=== PATIENT | female | born 1970 | race Caucasian/White ===

== ENCOUNTER 2018-02-03 20:38 | Emergency (ER) | payer OTHER ==
[~2018-02-03] VITALS: Ht 165.1 cm; Wt 77.1 kg
--- OUTSIDE RECORDS SUMMARY | 2018-02-03 20:45 | XMS REPORT | CCD ---
Author Author TERI BLACKWELL Unknown Address [address] [facility] [address] [place] [address] Care Team Providers Care Customer Relations Coordinator Name Role Phone MARCI LARA Attphys Allergies Allergy Code Allergy Type Reaction Status No Known Allergies 0 Drug allergy Active Active Medications Unknown or Not Available. Problems Unknown or Not Available. Procedures Procedure Code Procedure Type Date SHOULDER MINIMUM [id number] 08/10/2016 ELBOW [id number] 08/10/2016 Results Unknown or Not Available. Encounters Encounter Diagnosis Diagnosis Code Start Date Nondisplaced fracture of coronoid process of left ulna, initial encounter for closed fracture [id number] 08/10/2016 Function Status Unknown or Not Available. History of Immunizations Unknown or Not Available. Plan of Treatment Unknown or Not Available. Social History Smoking Status Code Start Date End Date Never smoker [id number] Vital Signs Unknown or Not Available. Function Status Unknown or Not Available. Goals Unknown or Not Available. ASSESSMENTS Unknown or Not Available. Health Concerns Section Unknown or Not Available.
--- OUTSIDE RECORDS SUMMARY | 2018-02-03 20:46 | XMS REPORT ---
Author Author Donna Guillen [facility] Address [address] [place], [place] [id number] Care Team Providers Care Casing Puller Name Role Phone Donna Guillen PCP Unavailable Allergies and Adverse Reactions Name Reaction Notes NO KNOWN DRUG ALLERGIES Plan of Treatment Not available. Medications Active Name Start Date Estimated Completion Date SIG Comments Paxil 20 mg oral tablet 07/09/2014 take 1 tablet (20 mg) by oral route once daily for 30 days Paxil 20 mg oral tablet 08/08/2014 take 1 tablet (20 mg) by oral route once daily for 30 days Paxil 20 mg oral tablet 09/03/2014 take 1 tablet (20 mg) by oral route once daily for 30 days Paxil 20 mg oral tablet 12/03/2014 take 1.5 tablets by oral route daily Name Start Date Expiration Date SIG Comments Keflex 750 mg oral capsule 02/09/2009 02/16/2009 take 1 capsule (750 mg) by oral route 2 times per day for 7 days meloxicam 15 mg oral tablet 09/26/2012 take 1 tablet (15 mg) by oral route once daily prednisone 20 mg oral tablet 09/06/2012 Taper dose 4X2, 3X2, 2X2, 1X2 then DC baclofen 20 mg oral tablet 02/21/2014 03/14/2014 take 1 tablet (20 mg) by oral route 3 times per day for 21 days Mobic 15 mg oral tablet 02/21/2014 03/14/2014 take 1 tablet (15 mg) by oral route once daily for 21 days amoxicillin 500 mg oral capsule 04/08/2014 04/15/2014 take 1 capsule (500 mg) by oral route 3 times per day for 7 days Paxil 20 mg oral tablet 04/14/2014 07/08/2014 take 1 tablet (20 mg) by oral route once daily for 30 days gentamicin 0.3 % ophthalmic drops 06/10/2014 06/15/2014 instill 1 drop into affected eye(s) by ophthalmic route every 4 hours for 5 days Discontinued Name Start Date Discontinued Date SIG Comments Medrol (Dusty) 4 mg oral tablets,dose pack 09/26/2012 10/10/2012 take as directed Zoloft 50 mg oral tablet 01/22/2013 03/18/2013 take 1 tablet (50 mg) by oral route once daily buspirone 10 mg oral tablet 03/18/2013 04/15/2013 take 1 tablet (10 mg) by oral route 2 times per day for 15 days Problem List Description Status Onset *No known medical problems Active Anxiety Active 03/22/2013 Vital Signs Date Time BP-Sys(mm[Hg] BP-Agustina(mm[Hg]) HR(bpm) RR(rpm) Temp WT HT HC BMI BSA BMI Percentile O2 Sat(%) 12/03/2014 3:28:00 PM 135 mmHg 75 mmHg 69 bpm 18 rpm 98.3 F 154.375 lbs 62.5 in 27.79 kg/m2 1.76 m2 100 % 04/08/2014 3:28:00 PM 120 mmHg 70 mmHg 83 bpm 16 rpm 98.9 F 144 lbs 98 % 02/21/2014 2:10:00 PM 118 mmHg 78 mmHg 66 bpm 16 rpm 98.6 F 138 lbs 100 % 07/01/2013 11:22:00 AM 110 mmHg 78 mmHg 80 bpm 16 rpm 99 F 133.8 lbs 100 % 04/15/2013 3:29:00 PM 120 mmHg 80 mmHg 78 bpm 16 rpm 97.8 F 137 lbs 99 % 03/18/2013 3:42:00 PM 100 mmHg 80 mmHg 72 bpm 16 rpm 98.2 F 131 lbs 98 % 12/18/2012 3:47:00 PM 120 mmHg 78 mmHg 87 bpm 18 rpm 98 F 135.8 lbs 64 in 23.31 kg/m2 1.67 m2 100 % 11/19/2012 3:37:00 PM 108 mmHg 74 mmHg 90 bpm 18 rpm 98.3 F 133 lbs 64 in 22.8292 kg/m 1.6505 m 98 % 11/19/2012 3:34:00 PM 110 mmHg 68 mmHg 66 bpm 18 rpm 97.6 F 133 lbs 64 in 22.83 kg/m2 1.65 m2 100 % 11/05/2012 3:25:00 PM 109 mmHg 64 mmHg 64 bpm 18 rpm 98.3 F 135.8 lbs 64 in 23.3098 kg/m 1.6678 m 98 % 10/10/2012 3:28:00 PM 110 mmHg 78 mmHg 67 bpm 16 rpm 98.4 F 130.2 lbs 64 in 22.35 kg/m2 1.63 m2 100 % 09/26/2012 3:49:00 PM 104 mmHg 72 mmHg 76 bpm 18 rpm 99.2 F 131.4 lbs 64 in 22.5545 kg/m 1.6405 m 100 % 08/09/2012 3:24:00 PM 119 mmHg 82 mmHg 78 bpm 16 rpm 98 F 129 lbs 64 in 22.14 kg/m2 1.63 m2 100 % Social History Name Description Comments denies alcohol use Tobacco Never smoker Denies illicit substance abuse Active but no formal exercise Uses seatbelts History of Procedures Date Ordered Description Order Status 08/09/2012 12:00 AM THER/PROPH/DIAG INJ SC/IM Reviewed 08/09/2012 12:00 AM Decadron, Per 1 Mg [facility][NOTE 3]# [address]-56 Reviewed 08/09/2012 12:00 AM Depo-Medrol, Per 80 Mg [facility][NOTE 3]#[id number] Reviewed 09/26/2012 12:00 AM X-RAY EXAM KNEE 4 OR MORE Returned 10/10/2012 12:00 AM Physical Therapy Consult Reviewed 12/18/2012 12:00 AM ASSAY THYROID STIM HORMONE Returned 12/18/2012 12:00 AM VITAMIN B-12 Returned 12/18/2012 12:00 AM COMPLETE CBC W/AUTO DIFF WBC Returned 12/18/2012 12:00 AM IMMUNIZATION ADMIN Reviewed 12/18/2012 12:00 AM Flu Injection 3 Years And Above [facility][NOTE 3]# [id number] RHC Reviewed 04/15/2013 12:00 AM ASSAY OF ESTROGEN Returned 04/15/2013 12:00 AM ASSAY OF GONADOTROPIN (FSH) Returned 04/15/2013 12:00 AM ASSAY THYROID STIM HORMONE Returned 07/01/2013 12:00 AM X-RAY EXAM OF ANKLE Returned 07/01/2013 12:00 AM X-RAY EXAM OF FOOT Returned 02/21/2014 12:00 AM RADEX SPINE THORACIC 2 VIEWS Returned Results Summary Data and Description Results 12/18/2012 4:25 PM WBC 8.6 RBC 4.30 HGB 14.0 g/dLHCT 40.40 %MCV 94.0 fLMCH 32.60 pgMCHC 34.70 g/dLRDW CV 11.90 %MPV 9.60 fLPLT 248 %NEUT 61.10 %%LYMP 23.60 %%MONO 9.90 %%EOS 4.80 %%BASO 0.60 %#NEUT 5.26 #LYMP 2.03 #MONO 0.85 #EOS 0.41 #BASO 0.05 VITAMIN B12 246.0 pg/mLTSH 1.60 uIU/mL 04/15/2013 3:56 PM TSH 1.390 uIU/mLFSH 5.90 mIU/mLEstrogens, Total 124.0 pg/mL History Of Immunizations Name Date Admin Mfg Name Mfg Code Trade Name Lot# Route Inj Vis Given Vis Pub CVX Influenza 12/18/2012 sanofi pasteur PMC Fluzone [id number] Intramuscular Left Deltoid 12/18/2012 09/14/2012 111 History of Past Illness Name Date of Onset Comments *No known medical problems Anxiety 03/22/2013 Eustachian Tube Dysfunction Aug 09 2012 3:25PM Seasonal Allergies Aug 09 2012 3:25PM Post-nasal drainage Aug 09 2012 3:25PM Sprain/Strain left knee Sep 26 2012 3:58PM Sprain/Strain left knee Oct 10 2012 3:32PM Sprain/Strain left knee Nov 05 2012 3:30PM Sprain/Strain left knee Nov 19 2012 3:39PM Mood swings Dec 18 2012 3:52PM Fatigue Dec 18 2012 3:52PM Decreased libido Dec 18 2012 3:52PM Depression Dec 18 2012 3:52PM Flu Dec 18 2012 4:21PM Anxiety Mar 18 2013 3:44PM Mood swings Mar 18 2013 3:44PM Anxiety Apr 15 2013 3:30PM Mood swings Apr 15 2013 3:30PM Decreased libido Apr 15 2013 3:30PM Pain in joint; ankle and foot, left Jul 01 2013 11:24AM Thoracic back pain Feb 21 2014 2:11PM Pharyngitis Apr 08 2014 3:30PM Anxiety and depression Dec 03 2014 3:32PM Grieving Dec 03 2014 3:32PM Payers Insurance Name Company Name Plan Name Plan Number Policy Number Policy Group Number Start Date [id number] N/A [employer] [id number] N/A History of Encounters Visit Date Visit Type Provider 12/03/2014 Office visit Donna Guillen [employer] 04/08/2014 Office visit Shilo Fatima [employer] 02/21/2014 Office visit Shilo Fatima [employer] 07/01/2013 Office visit Donna Guillen [employer] 04/15/2013 Office visit Shilo Fatima [employer] 03/18/2013 Office visit Shilo Fatima [employer] 12/18/2012 Office visit Donna Guillen [employer] 11/19/2012 Office visit Donna Guillen [employer] 11/05/2012 Office visit Donna Guillen [employer] 10/10/2012 Office visit Donna Guillen [employer] 09/26/2012 Office visit Donna Guillen [employer] 08/09/2012 Office visit WILBER GONZALEZ 02/02/2009 [facility] Rakesh Alberto MD 01/28/2009 Laboratory Meredith Marmolejo MD 01/27/2009 Office visit Rakesh Alberto MD 11/06/2008 Office visit Rakesh Alberto MD 10/16/2008 Office visit WILBER GONZALEZ
--- OUTSIDE RECORDS SUMMARY | 2018-02-03 20:46 | XMS REPORT ---
Author Author Lorenzo Mcclure [facility] Address [address] [place], [place] [address] Care Team Providers Care Washer Operator Name Role Phone Lorenzo Mcclure PCP Unavailable Allergies and Adverse Reactions Name Reaction Notes NO KNOWN DRUG ALLERGIES Plan of Treatment Planned Activity Comments Planned Date Planned Time Plan/Goal MRI LUMBAR SPINE W/O DYE 09/23/2015 12:00 AM COMPLETE CBC W/AUTO DIFF WBC 10/30/2015 12:00 AM COMPREHEN METABOLIC PANEL 10/30/2015 12:00 AM ASSAY THYROID STIM HORMONE 10/30/2015 12:00 AM ASSAY OF PARATHORMONE 10/30/2015 12:[address] ABD & PELV 1/> REGNS 10/30/2015 12:00 AM MRI LUMBAR SPINE W/O DYE 10/30/2015 12:00 AM Medications Active Name Start Date Estimated Completion [...] take 1.5 tablets by oral route daily Paxil 20 mg oral tablet 06/23/2015 take 1.5 tablets by oral route daily tramadol 50 mg oral tablet 09/23/2015 take 1 tablet by oral route once a day (at bedtime) gabapentin 300 mg oral capsule 10/02/2015 11/01/2015 take 1 capsule by oral route once a day (at bedtime) for 30 days [place]cad[place] 10-325 mg oral tablet 10/30/2015 take 1 tablet by oral route every 6 hours as needed for pain prednisone 20 mg oral tablet 10/30/2015 11/06/2015 take 3 tablets by oral route daily for 7 days Name Start Date Expiration Date SIG Comments [...] route every 4 hours for 5 days baclofen 10 mg oral tablet 06/23/2015 07/07/2015 take 1 tablet by oral route once a day (at bedtime) for 14 days Mobic 15 mg oral tablet 06/23/2015 07/07/2015 take 1 tablet (15 mg) by oral route once daily for 14 days diclofenac sodium 75 mg oral tablet,delayed release (DR/EC) 08/05/20152015 take 1 tablet (75 mg) by oral route 2 times per day for 30 days cyclobenzaprine 10 mg oral tablet 08/05/201502/21 to 1 tablet BID PRN Discontinued Name Start Date Discontinued Date SIG [...] 15 days Problem List Description Status Onset Anxiety Active 03/22/2013 Vital Signs Date Time BP-Sys(mm[Hg] BP-Agustina(mm[Hg]) HR(bpm) RR(rpm) Temp WT HT HC BMI BSA BMI Percentile O2 Sat(%) 10/30/2015 10:32:00 AM 124 mmHg 92 mmHg 82 bpm 18 rpm 99 F 156 lbs 62.5 in 28.08 kg/m2 1.77 m2 99 % 09/23/2015 2:37:00 PM 122 mmHg 78 mmHg 71 bpm 16 rpm 98.8 F 154 lbs 62.5 in 27.7178 kg/m 1.7551 m 98 % 08/05/2015 2:06:00 PM 118 mmHg 80 mmHg 75 bpm 14 rpm 96.8 F 152.125 lbs 62.5 in 27.38 kg/m2 1.74 m2 100 % 06/23/2015 2:54:00 PM 130 mmHg 80 mmHg 73 bpm 16 rpm 96.5 F 156 lbs 100 % 12/03/2014 3:28:00 PM 135 mmHg 75 mmHg 69 bpm 18 rpm 98.3 F 154.375 lbs 62.5 in 27.7853 kg/m 1.76 m2 100 % 04/08/2014 3:28:00 PM [...] rpm 98 F 135.8 lbs 64 in 23.3098 kg/m 1.67 m2 100 % 11/19/2012 3:37:00 PM 108 mmHg 74 mmHg 90 bpm 18 rpm 98.3 F 133 lbs 64 in 22.83 kg/m2 1.6505 m 98 % 11/19/2012 3:34:00 PM 110 mmHg 68 mmHg 66 bpm 18 rpm 97.6 F 133 lbs 64 in 22.8292 kg/m 1.65 m2 100 % 11/05/2012 3:25:00 PM 109 mmHg 64 mmHg 64 bpm 18 rpm 98.3 F 135.8 lbs 64 in 23.31 kg/m2 1.6678 m 98 % 10/10/2012 3:28:00 PM 110 mmHg 78 mmHg 67 bpm 16 rpm 98.4 F 130.2 lbs 64 in 22.3485 kg/m 1.63 m2 100 % 09/26/2012 3:49:00 PM 104 mmHg 72 mmHg 76 bpm 18 rpm 99.2 F 131.4 lbs 64 in 22.55 kg/m2 1.6405 m 100 % 08/09/2012 3:24:00 PM 119 mmHg 82 mmHg 78 bpm 16 rpm 98 F 129 lbs 64 in 22.1426 kg/m 1.63 m2 100 % Social History Name Description Comments denies alcohol use Tobacco Never smoker Denies illicit substance abuse Active but no formal exercise Uses seatbelts History of Procedures Date Ordered Description Order Status 08/05/2015 12:00 AM RADEX SPINE LUMBOSACRAL 2/3 VIEWS Returned 10/30/2015 10:46 AM URINALYSIS AUTO W/O SCOPE Reviewed 08/09/2012 12:00 AM THER/PROPH/DIAG INJ SC/IM Reviewed 08/09/2012 12:00 AM Decadron, Per 1 Mg [facility]# [address]-78 Reviewed 08/09/2012 12:00 AM Depo-Medrol, Per 80 Mg [facility]#8427-8305-53 Reviewed 09/26/2012 12:00 AM X-RAY EXAM KNEE 4 OR MORE Returned 10/10/2012 12:00 AM Physical Therapy Consult Reviewed 12/18/2012 12:00 AM ASSAY THYROID STIM HORMONE Returned 12/18/2012 12:00 AM VITAMIN B-12 Returned 12/18/2012 12:00 AM COMPLETE CBC W/AUTO DIFF WBC Returned 12/18/2012 12:00 AM IMMUNIZATION ADMIN Reviewed 12/18/2012 12:00 AM Flu Injection 3 Years And Above [facility]# [address]-41 RHC Reviewed 04/15/2013 12:00 AM ASSAY OF [...] 1.390 uIU/mLFSH 5.90 mIU/mLEstrogens, Total 124.0 pg/mL 05/14/2015 1:05 PM WBC 6.6 RBC 4.37 HGB 13.60 g/dLHCT 41.80 %MCV 96.0 fLMCH 31.10 pgMCHC 32.50 g/dLRDW CV 12.30 %MPV 9.60 fLPLT 337 GLUCOSE 111.0 mg/ dLSODIUM 142.0 mmol/LPOTASSIUM 4.10 mmol/LCHLORIDE 105.0 mmol/LCO2 26.0 mmol/ LBUN 17.0 mg/dLCREATININE 0.80 mg/dLSGOT/AST 29.0 IU/LSGPT/ALT 35.0 IU/LALK PHOS 46.0 IU/LTOTAL PROTEIN 7.0 g/dLALBUMIN 4.60 g/dLTOTAL BILI 0.30 mg/ dLCALCIUM 11.40 mg/dLeGFR >60 mL/min/1.73m 10/30/2015 10:46 AM Clarity Ur clear Color Ur yellow Glucose Ur-sCnc neg Bilirub Ur Ql Strip neg Ketones Ur Ql Strip neg Sp Gr Ur Qn 1.005 Hgb Ur Ql Strip trace pH Ur-LsCnc 5.0 Prot Ur Ql Strip neg Urobilinogen Ur-mCnc 0.2 Nitrite Ur Ql Strip neg WBC Est Ur Ql Strip neg History Of Immunizations Name Date Admin Mfg Name Mf Code Trade Name Lot# Route Inj Vis Given Vis Pub CVX Influenza 12/18/2012 sanofi [facility] PMC Fluzone [id number] Intramuscular Left Deltoid 12/18/2012 09/14/2012 111 History of Past Illness Name Date of Onset Comments Anxiety 03/22/2013 Eustachian Tube Dysfunction Aug 09 [...] 2014 3:32PM Grieving Dec 03 2014 3:32PM Anxiety Jun 23 2015 2:55PM Back pain Jun 23 2015 2:55PM Midline low back pain without sciatica Aug 05 2015 2:08PM Acute left-sided low back pain with left-sided sciatica Sep 23 2015 2:38PM Low Back Pain Oct 30 2015 10:39AM Hypercalcemia Oct 30 2015 10:39AM Abdominal Pain Oct 30 2015 10:39AM Encopresis Oct 30 2015 10:39AM Enuresis Oct 30 2015 10:39AM Cauda equina syndrome Oct 30 2015 10:39AM Payers Insurance Name Company Name Plan Name Plan Number Policy Number Policy Group Number Start Date [employer] [facility] [place] [id number] N/A BCBS [facility] [place] [id number] N/A [employer] [id number] N/A [facility] Med Occupational Medicine [id number] N/A History of Encounters Visit Date Visit Type Provider 10/30/2015 Office visit 10/30/2015 Office visit Lorenzo Mcclure MD 09/23/2015 Office visit Shilo Fatima H[employer] 08/05/2015 Office visit Shilo Fatima [employer] 06/23/2015 Office visit Shilo Fatima [employer] 05/14/2015 Office visit Lorenzo Mcclure MD 12/03/2014 Office visit Donna Guillen [employer] 04/08/2014 Office visit Shilo Fatima [employer] 02/21/2014 Office visit Shilo Fatima [employer] 07/01/2013 Office visit Donna Guillen [employer] 04/15/2013 Office visit Shilo Fatima [employer] 03/18/2013 Office visit Shilo Fatima H[employer] PULLER 12/18/2012 Office visit Donna Guillen HIDE PULLER 11/19/2012 Office visit Donna Guillen H[employer] PULLER 11/05/2012 Office visit Donna Guillen HIDE PULLER 10/10/2012 Office visit Donna Guillen HIDE PULLER 09/26/2012 Office visit Donna Guillen HIDE PULLER 08/09/2012 Office visit WILBER GONZALEZ 02/02/2009 Hospital Rakesh Alberto MD 01/28/2009 Laboratory Meredith Marmolejo MD 01/27/2009 Office visit Rakesh Alberto MD 11/06/2008 Office visit Rakesh Alberto MD 10/16/2008 Office visit WILBER GONZALEZ
--- OUTSIDE RECORDS SUMMARY | 2018-02-03 20:47 | XMS REPORT ---
Author Author Shilo Fatima [facility] Address [address] [place], [place] [address] Care Team Providers Care Threading Machine Operator Name Role Phone Shilo Fatima PCP Allergies and Adverse Reactions Name Reaction Notes [...] take 1.5 tablets by oral route daily diclofenac sodium 75 mg oral tablet,delayed release (DR/EC) 08/05/20152015 take 1 tablet (75 mg) by oral route 2 times per day for 30 days cyclobenzaprine 10 mg oral tablet 08/05/2015 1/2 to 1 tablet BID PRN Name Start Date Expiration Date SIG Comments [...] oral route once daily for 14 days Discontinued Name Start Date Discontinued Date [...] HC BMI BSA BMI Percentile O2 Sat(%) 08/05/2015 2:06:00 PM 118 mmHg 80 mmHg 75 bpm 14 rpm 96.8 F 152.125 lbs 62.5 in 27.38 kg/m2 1.74 m2 100 % 06/23/2015 2:54:00 PM 130 mmHg 80 mmHg 73 bpm 16 rpm 96.5 F 156 lbs 100 % 12/03/2014 3:28:00 PM 135 mmHg 75 mmHg 69 bpm 18 rpm 98.3 F 154.375 lbs 62.5 in 27.7853 kg/m 1.7572 m 100 % 04/08/2014 3:28:00 PM 120 mmHg [...] lbs 64 in 23.3098 kg/m 1.6678 m 100 % 11/19/2012 3:37:00 PM 108 mmHg 74 mmHg 90 bpm 18 rpm 98.3 F 133 lbs 64 in 22.83 kg/m2 1.65 m2 98 % 11/19/2012 3:34:00 PM 110 mmHg 68 mmHg 66 bpm 18 rpm 97.6 F 133 lbs 64 in 22.8292 kg/m 1.6505 m 100 % 11/05/2012 3:25:00 PM 109 mmHg 64 mmHg 64 bpm 18 rpm 98.3 F 135.8 lbs 64 in 23.31 kg/m2 1.67 m2 98 % 10/10/2012 3:28:00 PM 110 mmHg 78 mmHg 67 bpm 16 rpm 98.4 F 130.2 lbs 64 in 22.3485 kg/m 1.633 m 100 % 09/26/2012 3:49:00 PM 104 mmHg 72 mmHg 76 bpm 18 rpm 99.2 F 131.4 lbs 64 in 22.55 kg/m2 1.64 m2 100 % 08/09/2012 3:24:00 PM 119 mmHg 82 mmHg 78 bpm 16 rpm 98 F 129 lbs 64 in 22.1426 kg/m 1.6255 m 100 % Social History Name Description Comments denies alcohol use Tobacco Never smoker Denies illicit substance abuse Active but no formal exercise Uses seatbelts History of Procedures Date Ordered Description Order Status 08/05/2015 12:00 AM RADEX SPINE LUMBOSACRAL 2/3 VIEWS Returned 08/09/2012 12:00 AM THER/PROPH/DIAG INJ SC/IM Reviewed 08/09/2012 12:00 AM Decadron, Per 1 Mg [facility]# [address]-21 Reviewed 08/09/2012 12:00 AM Depo-Medrol, Per 80 Mg [facility]#4752-5873-93 Reviewed 09/26/2012 12:00 AM X-RAY EXAM KNEE 4 OR MORE Returned 10/10/2012 12:00 AM Physical Therapy Consult Reviewed 12/18/2012 12:00 AM ASSAY THYROID STIM HORMONE Returned 12/18/2012 12:00 AM VITAMIN B-12 Returned 12/18/2012 12:00 AM COMPLETE CBC W/AUTO DIFF WBC Returned 12/18/2012 12:00 AM IMMUNIZATION ADMIN Reviewed 12/18/2012 12:00 AM Flu Injection 3 Years And Above [facility]# [address]-65 RHC Reviewed 04/15/2013 12:00 AM ASSAY OF [...] 0.30 mg/ dLCALCIUM 11.40 mg/dLeGFR >60 mL/min/1.73m History Of Immunizations Name Date Admin Mfg Name Mfg Code Trade Name Lot# Route Inj Vis Given Vis Pub CVX Influenza 12/18/2012 sanofi pasteur PMC Fluzone [id number] Intramuscular Left Deltoid 12/18/2012 09/14/2012 111 History [...] pain without sciatica Aug 05 2015 2:08PM Payers Insurance Name Company Name Plan Name Plan Number Policy Number Policy Group Number Start Date [id number] N/A [facility] [id number] N/A [employer] [id number] N/A [facility] Med Occupational Medicine [id number] N/A History of Encounters Visit Date Visit Type Provider 08/05/2015 Office visit Shilo Fatima CUSTOMER SERVICE LEADER 06/23/2015 Office visit Shilo Fatima CUSTOMER SERVICE LEADER 05/14/2015 Office visit Lorenzo Mcclure MD 12/03/2014 Office visit Donna Guillen CUSTOMER SERVICE LEADER 04/08/2014 Office visit Shilo Fatima CUSTOMER SERVICE LEADER 02/21/2014 Office visit Shilo Fatima CUSTOMER SERVICE LEADER 07/01/2013 Office visit Donna Guillen CUSTOMER SERVICE LEADER 04/15/2013 Office visit Shilo Fatima CUSTOMER SERVICE LEADER 03/18/2013 Office visit Shilo Fatima CUSTOMER SERVICE LEADER 12/18/2012 Office visit Donna Guillen CUSTOMER SERVICE LEADER 11/19/2012 Office visit Donna Guillen CUSTOMER SERVICE LEADER 11/05/2012 Office visit Donna Guillen CUSTOMER SERVICE LEADER 10/10/2012 Office visit Donna Guillen CUSTOMER SERVICE LEADER 09/26/2012 Office visit Donna Guillen CUSTOMER SERVICE LEADER 08/09/2012 Office visit WILBER GONZALEZ 02/02/2009 Hospital Rakesh Alberto MD 01/28/2009 Laboratory Meredith Marmolejo MD 01/27/2009 Office visit Rakesh Alberto MD 11/06/2008 Office visit Rakesh Alberto MD 10/16/2008 Office visit WILBER GONZALEZ
--- OUTSIDE RECORDS SUMMARY | 2018-02-03 20:47 | XMS REPORT ---
Author Author Lorenzo Mcclure [facility] Address [address] [place], [place] [id number] Care Team Providers Care Mixing And Dispensing Supervisor Name Role Phone Lorenzo Mcclure PCP Allergies and Adverse Reactions Name Reaction Notes NO KNOWN DRUG ALLERGIES Plan of Treatment Planned Activity Comments Planned Date Planned Time Plan/Goal CT ABD AND PELVIS W/WO CONTRAST 10/30/2015 12:00 AM MRI LUMBAR SPINE W/O CONTRAST 10/30/2015 12:00 AM Medications Active Name Start [...] oral route once daily for 30 days tramadol 50 mg oral tablet 09/23/2015 take 1 tablet by oral route once a day (at bedtime) [place] 10-325 mg oral tablet 11/19/2015 take 1 tablet by oral route every 6 hours as needed for pain paroxetine HCl 40 mg oral tablet 01/26/2017 take 1 tablet (40 mg) by oral route once daily for 30 days Name Start Date Expiration Date SIG [...] 3 times per day for 7 days gentamicin 0.3 % ophthalmic drops 06/10/2014 [...] days cyclobenzaprine 10 mg oral tablet 08/05/2015 1 to 1 tablet BID PRN gabapentin 300 mg oral capsule 10/02/2015 11/01/2015 take 1 capsule by oral route once a day (at bedtime) for 30 days prednisone 20 mg oral tablet 10/30/2015 11/06/2015 take 3 tablets by oral route daily for 7 days Discontinued Name Start Date Discontinued Date [...] HC BMI BSA BMI Percentile O2 Sat(%) 01/26/2017 8:43:00 AM 140 mmHg 80 mmHg 80 bpm 18 rpm 97.6 F 163.25 lbs 62 in 29.86 kg/m2 1.80 m2 100 % 10/30/2015 10:32:00 AM 124 mmHg 92 mmHg 82 bpm 18 rpm 99 F 156 lbs 62.5 in 28.0778 kg/m 1.7665 m 99 % 09/23/2015 2:37:00 PM 122 mmHg 78 mmHg 71 bpm 16 rpm 98.8 F 154 lbs 62.5 in 27.72 kg/m2 1.76 m2 98 % 08/05/2015 2:06:00 PM 118 mmHg 80 mmHg 75 bpm 14 rpm 96.8 F 152.125 lbs 62.5 in 27.3803 kg/m 1.7444 m 100 % 06/23/2015 2:54:00 PM 130 mmHg [...] 12:00 AM RADEX SPINE LUMBOSACRAL 2/3 VIEWS Reviewed 10/30/2015 10:46 AM URINALYSIS AUTO W/O SCOPE Reviewed 10/30/2015 12:00 AM COMPLETE CBC W/AUTO DIFF WBC Reviewed 10/30/2015 12:00 AM COMPREHEN METABOLIC PANEL Reviewed 10/30/2015 12:00 AM ASSAY THYROID STIM HORMONE Reviewed 10/30/2015 12:00 AM ASSAY OF PARATHORMONE Reviewed 10/30/2015 12:00 AM MRI LUMBAR SPINE W/O DYE Reviewed 08/09/2012 12:00 AM THER/PROPH/DIAG INJ SC/IM Reviewed 08/09/2012 12:00 AM Decadron, Per 1 Mg [facility]# [address]-06 Reviewed 08/09/2012 12:00 AM Depo-Medrol, Per 80 Mg [facility]#5002-3951-41 Reviewed 09/26/2012 12:00 AM X-RAY EXAM KNEE 4 OR MORE Reviewed 10/10/2012 12:00 AM Physical Therapy Consult Reviewed 12/18/2012 12:00 AM ASSAY THYROID STIM HORMONE Reviewed 12/18/2012 12:00 AM VITAMIN B-12 Reviewed 12/18/2012 12:00 AM COMPLETE CBC W/AUTO DIFF WBC Reviewed 12/18/2012 12:00 AM IMMUNIZATION ADMIN Reviewed 12/18/2012 12:00 AM Flu Injection 3 Years And Above [facility]# [address]-94 RHC Reviewed 04/15/2013 12:00 AM ASSAY OF ESTROGEN Reviewed 04/15/2013 12:00 AM ASSAY OF GONADOTROPIN (FSH) Reviewed 04/15/2013 12:00 AM ASSAY THYROID STIM HORMONE Reviewed 07/01/2013 12:00 AM X-RAY EXAM OF ANKLE Reviewed 07/01/2013 12:00 AM X-RAY EXAM OF FOOT Reviewed 02/21/2014 12:00 AM RADEX SPINE THORACIC 2 VIEWS Reviewed Results Summary Date and Description Results 12/18/2012 4:25 PM WBC 8.6 RBC 4.30 HGB 14.0 g/dLHCT 40.40 %MCV 94.0 fLMCH 32.60 pgMCHC 34.70 g/dLRDW SD 40 RDW CV 11.90 %MPV 9.60 fLPLT 248 NRBC# 0.00 NRBC% 0.0 %NEUT 61.10 %%LYMP 23.60 %%MONO 9.90 %%EOS 4.80 %%BASO 0.60 %#NEUT 5.26 #LYMP 2.03 #MONO 0.85 #EOS 0.41 #BASO 0.05 MANUAL DIFF NOT IND VITAMIN B12 246.0 pg/mLTSH 1.60 uIU/mL 04/15/2013 3:56 PM TSH 1.390 uIU/mLFSH 5.90 mIU/mLEstrogens, Total 124.0 pg/mL 10/30/2015 10:46 AM Clarity Ur clear Color Ur yellow Glucose Ur-sCnc neg Bilirub Ur Ql Strip neg Ketones Ur Ql Strip neg Sp Gr Ur Qn 1.005 Hgb Ur Ql Strip trace pH Ur-LsCnc 5.0 Prot Ur Ql Strip neg Urobilinogen Ur-mCnc 0.2 Nitrite Ur Ql Strip neg WBC Est Ur Ql Strip neg 10/30/2015 11:45 AM WBC 6.2 RBC 4.56 HGB 14.70 g/dLHCT 44.80 %MCV 98.0 fLMCH 32.20 pgMCHC 32.80 g/dLRDW SD 43 RDW CV 11.90 %MPV 9.60 fLPLT 279 NRBC# 0.00 NRBC% 0.0 %NEUT 59.50 %%LYMP 25.80 %%MONO 6.30 %%EOS 7.10 %%BASO 1.10 %#NEUT 3.67 #LYMP 1.59 #MONO 0.39 #EOS 0.44 #BASO 0.07 MANUAL DIFF NOT IND GLUCOSE 97.0 mg/dLSODIUM 140.0 mmol/LPOTASSIUM 3.60 mmol/LCHLORIDE 107.0 mmol/LCO2 22.0 mmol/LBUN 19.0 mg/dLCREATININE 0.90 mg/dLSGOT/AST 24.0 IU/LSGPT/ALT 28.0 IU/ LALK PHOS 47.0 IU/LTOTAL PROTEIN 8.0 g/dLALBUMIN 5.10 g/dLTOTAL BILI 0.50 mg/ dLCALCIUM 11.70 mg/dLAGE 45 GFR NonAA 68 GFR AA 82 eGFR >60 mL/min/1.73meGFR AA* >60 TSH 0.860 uIU/mLPTH, Intact 31 History Of Immunizations Name Date Admin Mfg Name Mfg Code Trade Name Lot# Route Inj Vis Given Vis Pub CVX Influenza 12/18/2012 sanofi pasteur PMC Fluzone [id number] Intramuscular Left Deltoid 12/18/2012 09/14/2012 111 History [...] Cauda equina syndrome Oct 30 2015 10:39AM Cauda equina syndrome Oct 30 2015 12:28PM Lower abdominal pain Jan 26 2017 8:45AM Anxiety Jan 26 2017 8:45AM Payers Insurance Name Company Name Plan Name Plan Number Policy Number Policy Group Number Start Date [employer] [place] [id number] N/A [employer] [id number] N/A [facility] Occupational Medicine [id number] N/A [employer] [place] [id number] N/A History of Encounters Visit Date Visit Type Provider 01/26/2017 Office visit Lorenzo Mcclure MD 11/02/2015 Office visit Lorenzo Mcclure MD 10/30/2015 Office visit 10/30/2015 Office visit Lorenzo Mcclure MD 09/23/2015 Office visit Shilo Fatima DIRECTOR OF CLINICAL SERVICES 08/05/2015 Office visit Shilo Fatima DIRECTOR OF CLINICAL SERVICES 06/23/2015 Office visit Shilo Fatima DIRECTOR OF CLINICAL SERVICES 05/14/2015 Office visit Lorenzo Mcclure MD 12/03/2014 Office visit Donna Guillen DIRECTOR OF CLINICAL SERVICES 04/08/2014 Office visit Shilo Fatima DIRECTOR OF CLINICAL SERVICES 02/21/2014 Office visit Shilo Fatima DIRECTOR OF CLINICAL SERVICES 07/01/2013 Office visit Donna Guillen DIRECTOR OF CLINICAL SERVICES 04/15/2013 Office visit Shilo Fatima DIRECTOR OF CLINICAL SERVICES 03/18/2013 Office visit Shilo Fatima DIRECTOR OF CLINICAL SERVICES 12/18/2012 Office visit Donna Guillen DIRECTOR OF CLINICAL SERVICES 11/19/2012 Office visit Donna Guillen DIRECTOR OF CLINICAL SERVICES 11/05/2012 Office visit Donna Guillen DIRECTOR OF CLINICAL SERVICES 10/10/2012 Office visit Donna Guillen DIRECTOR OF CLINICAL SERVICES 09/26/2012 Office visit Donna Guillen DIRECTOR OF CLINICAL SERVICES 08/09/2012 Office visit WILBER GONZALEZ 02/02/2009 Hospital Rakesh Alberto MD 01/28/2009 Laboratory Meredith Marmolejo MD 01/27/2009 Office visit Rakesh Alberto MD 11/06/2008 Office visit Rakesh Alberto MD 10/16/2008 Office visit WILBER GONZALEZ
--- OUTSIDE RECORDS SUMMARY | 2018-02-03 20:48 | XMS REPORT ---
Author Author Shilo Fatima [facility] Address [address] [place], [place] [address] Care Team Providers Care Greenhouse Staff Name Role Phone Shilo Fatima PCP Allergies [...] take 1.5 tablets by oral route daily baclofen 10 mg oral tablet 06/23/2015 07/07/2015 take 1 tablet by oral route once a day (at bedtime) for 14 days Mobic 15 mg oral tablet 06/23/2015 07/07/2015 take 1 tablet (15 mg) by oral route once daily for 14 days Name Start Date Expiration Date SIG [...] HC BMI BSA BMI Percentile O2 Sat(%) 06/23/2015 2:54:00 PM 130 mmHg 80 mmHg [...] 08/09/2012 12:00 AM Decadron, Per 1 Mg [facility]# [address]-46 Reviewed 08/09/2012 12:00 AM Depo-Medrol, Per 80 Mg [facility]#9900-0764-19 Reviewed 09/26/2012 12:00 AM X-RAY EXAM KNEE 4 OR MORE Returned 10/10/2012 12:00 AM Physical Therapy Consult Reviewed 12/18/2012 12:00 AM ASSAY THYROID STIM HORMONE Returned 12/18/2012 12:00 AM VITAMIN B-12 Returned 12/18/2012 12:00 AM COMPLETE CBC W/AUTO DIFF WBC Returned 12/18/2012 12:00 AM IMMUNIZATION ADMIN Reviewed 12/18/2012 12:00 AM Flu Injection 3 Years And Above [facility]# [address]-45 RHC Reviewed 04/15/2013 12:00 AM ASSAY OF [...] CVX Influenza 12/18/2012 sanofi pasteur PMC Fluzone [id number] Intramuscular Left Deltoid 12/18/2012 09/14/2012 111 History [...] 2:55PM Back pain Jun 23 2015 2:55PM Payers Insurance Name Company Name Plan Name Plan Number Policy Number Policy Group Number Start Date [facility] [id number] N/A [employer] [id number] N/A [facility] Med Occupational Medicine [id number] N/A History of Encounters Visit Date Visit Type Provider 06/23/2015 Office visit Shilo Fatima PROJECT ACCOUNTANT 05/14/2015 Office visit Lorenzo Mcclure MD 12/03/2014 Office visit Donna Guillen PROJECT ACCOUNTANT 04/08/2014 Office visit Shilo Fatima PROJECT ACCOUNTANT 02/21/2014 Office visit Shilo Fatima APRN 07/01/2013 Office visit Donna Guillen PROJECT ACCOUNTANT 04/15/2013 Office visit Shilo Fatima PROJECT ACCOUNTANT 03/18/2013 Office visit Shilo Fatima PROJECT ACCOUNTANT 12/18/2012 Office visit Donna Guillen PROJECT ACCOUNTANT 11/19/2012 Office visit Donna Guillen PROJECT ACCOUNTANT 11/05/2012 Office visit Donna Guillen PROJECT ACCOUNTANT 10/10/2012 Office visit Donna Guillen PROJECT ACCOUNTANT 09/26/2012 Office visit Donna Guillen PROJECT ACCOUNTANT 08/09/2012 Office visit WILBER GONZALEZ 02/02/2009 Hospital Rakesh Alberto MD 01/28/2009 Laboratory Meredith Marmolejo MD 01/27/2009 Office visit Rakesh Alberto MD 11/06/2008 Office visit Rakesh Alberto MD 10/16/2008 Office visit WILBER GONZALEZ
--- OUTSIDE RECORDS SUMMARY | 2018-02-03 20:48 | XMS REPORT ---
Author Author Lorenzo Mcclure [facility] Address [address] [place], [place] [address] Care Team Providers Care Repeat Photocomposing Machine Operator Name Role Phone Lorenzo Mcclure PCP [...] & PELV 1/> REGNS 10/30/2015 12:00 AM Medications Active Name Start [...] a day (at bedtime) for 30 days [place] 10-325 mg oral tablet 10/30/2015 take 1 [...] 08/05/2015 1 to 1 tablet BID PRN Discontinued Name [...] 08/09/2012 12:00 AM Decadron, Per 1 Mg [facility]# [address]-79 Reviewed 08/09/2012 12:00 AM Depo-Medrol, Per 80 Mg [facility]#4170-0019-01 Reviewed 09/26/2012 12:00 AM X-RAY EXAM KNEE 4 OR MORE Returned 10/10/2012 12:00 AM Physical Therapy Consult Reviewed 12/18/2012 12:00 AM ASSAY THYROID STIM HORMONE Returned 12/18/2012 12:00 AM VITAMIN B-12 Returned 12/18/2012 12:00 AM COMPLETE CBC W/AUTO DIFF WBC Returned 12/18/2012 12:00 AM IMMUNIZATION ADMIN Reviewed 12/18/2012 12:00 AM Flu Injection 3 Years And Above [facility]# [address]-82 RHC Reviewed 04/15/2013 12:00 AM ASSAY OF [...] CVX Influenza 12/18/2012 sanofi pasteur PMC Fluzone [id number] Intramuscular Left Deltoid 12/18/2012 09/14/2012 111 History [...] 2015 10:39AM Enuresis Oct 30 2015 10:39AM Payers Insurance Name Company Name Plan Name Plan Number Policy Number Policy Group Number Start Date [employer] [place] [id number] N/A [employer] [place] [id number] N/A [employer] [id number] N/A [facility] Occupational Medicine [id number] N/A History of Encounters Visit Date Visit Type Provider 10/30/2015 Office visit 10/30/2015 Office visit Lorenzo Mcclure MD 09/23/2015 Office visit Shilo Fatima APRN 08/05/2015 Office visit Shilo Fatima APRN 06/23/2015 Office visit Shilo Fatima APRN 05/14/2015 Office visit Lorenzo Mcclure MD 12/03/2014 Office visit Donna Guillen APRN 04/08/2014 Office visit Shilo Fatima APRN 02/21/2014 Office visit Shilo Fatima APRN 07/01/2013 Office visit Donna Guillen ASSISTANT BRAND MANAGER 04/15/2013 Office visit hSilo Fatima APRN 03/18/2013 Office visit Shilo Fatima ASSISTANT BRAND MANAGER 12/18/2012 Office visit Donna Guillen ASSISTANT BRAND MANAGER 11/19/2012 Office visit Donna Guillen ASSISTANT BRAND MANAGER 11/05/2012 Office visit Donna Guillen ASSISTANT BRAND MANAGER 10/10/2012 Office visit Donna Guillen ASSISTANT BRAND MANAGER 09/26/2012 Office visit Donna Guillen ASSISTANT BRAND MANAGER 08/09/2012 Office visit WILBER GONZALEZ 02/02/2009 [facility] Rakesh Alberto MD 01/28/2009 Laboratory Meredith Marmolejo MD 01/27/2009 Office visit Rakesh Alberto MD 11/06/2008 Office visit Rakesh Alberto MD 10/16/2008 Office visit WILBER GONZALEZ
[2018-02-03] MEDS ORDERED: TETANUS,DIPTH,PERTUSS P/F (BOOSTRIX) 0.5 ML VIAL IM STA (20:49)
--- OUTSIDE RECORDS SUMMARY | 2018-02-03 20:49 | XMS REPORT ---
Author Author Lorenzo Mcclure [facility] Address [address] [place], [place] [address] Care Team Providers Care Traveling Secretary Name Role Phone Lorenzo Mcclure PCP Unavailable [...] LUMBAR SPINE W/O DYE 10/30/2015 12:00 AM MRI LUMBAR SPINE W/O [...] a day (at bedtime) for 30 days [place] 10-325 mg oral tablet 10/30/2015 take 1 [...] Per 1 Mg [facility]# [address]-82 Reviewed 08/09/2012 12:00 AM Depo-Medrol, Per 80 Mg [facility]#2732-9529-33 Reviewed 09/26/2012 12:00 AM X-RAY EXAM KNEE 4 OR MORE Returned 10/10/2012 12:00 AM Physical Therapy Consult Reviewed 12/18/2012 12:00 AM ASSAY THYROID STIM HORMONE Returned 12/18/2012 12:00 AM VITAMIN B-12 Returned 12/18/2012 12:00 AM COMPLETE CBC W/AUTO DIFF WBC Returned 12/18/2012 12:00 AM IMMUNIZATION ADMIN Reviewed 12/18/2012 12:00 AM Flu Injection 3 Years And Above [facility]# [address]-23 RHC Reviewed 04/15/2013 12:00 AM ASSAY OF [...] Vis Given Vis Pub CVX Influenza 12/18/2012 [facility] PMC Fluzone [id number] Intramuscular Left Deltoid 12/18/2012 09/14/2012 111 History [...] Cauda equina syndrome Oct 30 2015 12:28PM Payers Insurance Name Company Name Plan Name Plan Number Policy Number Policy Group Number Start Date [facility] [id number] N/A [facility] [id number] N/A [employer] [id number] N/A [facility] Med Occupational Medicine [id number] N/A History of Encounters Visit Date Visit Type Provider 10/30/2015 Office visit 10/30/2015 Office visit Lorenzo Mcclure MD 09/23/2015 Office visit Shilo Fatima SPECIAL TESTER 08/05/2015 Office visit Shilo Fatima SPECIAL TESTER 06/23/2015 Office visit Shilo Fatima SPECIAL TESTER 05/14/2015 Office visit Lorenzo Mcclure MD 12/03/2014 Office visit Donna Guillen SPECIAL TESTER 04/08/2014 Office visit Shilo Fatima SPECIAL TESTER 02/21/2014 Office visit Shilo Fatima SPECIAL TESTER 07/01/2013 Office visit Donna Guillen SPECIAL TESTER 04/15/2013 Office visit Shilo Fatima SPECIAL TESTER 03/18/2013 Office visit Shilo Fatima SPECIAL TESTER 12/18/2012 Office visit Donna Guillen SPECIAL TESTER 11/19/2012 Office visit Donna Guillen SPECIAL TESTER 11/05/2012 Office visit Donna Guillen SPECIAL TESTER 10/10/2012 Office visit Donna Guillen SPECIAL TESTER 09/26/2012 Office visit Donna Guillen SPECIAL TESTER 08/09/2012 Office visit WILBER GONZALEZ 02/02/2009 Hospital Rakesh Alberto MD 01/28/2009 Laboratory Meredith Marmolejo MD 01/27/2009 Office visit Rakesh Alberto MD 11/06/2008 Office visit Rakesh Alberto MD 10/16/2008 Office visit WILBER GONZALEZ
--- OUTSIDE RECORDS SUMMARY | 2018-02-03 20:50 | XMS REPORT | Continuity of Care Document ---
Author Author [facility] Address Unknown Phone Unavailable Allergies Active Description Code Type Severity Reaction Onset Reported/Identified Relationship to Patient Clinical Status Yes No Known Allergies [id number] N /A N/A Medications There is no data. Problems There is no data. Procedures There is no data. Results Test Result Range PTH, Intact - 10/30/15 11:45 PTH, Intact 31 pg/mL 15-65 Encounters ACCT No. Visit Date/Time Discharge Status Pt. Type Provider Facility Loc./Unit Complaint [id number] 01/26/2017 09:26:31 01/26/2017 23:59:59 [facility] Outpatient Lorenzo Mcclure [id number] 12/17/2015 17:00:10 12/17/2015 23:59:59 [facility] Outpatient Lorenzo Mcclure [id number] 10/30/2015 11:03:48 10/30/2015 23:59:59 [facility] Outpatient Lorenzo Mcclure [id number] 09/23/2015 15:26:53 09/23/2015 23:59:59 [facility] Outpatient Shilo Fatima [id number] 05/19/2015 14:59:27 05/19/2015 23:59:59 [facility] Outpatient Lorenzo Mcclure [id number] 12/03/2014 16:18:52 12/03/2014 23:59:59 [facility] Outpatient Donna Guillen [id number] 02/21/2014 14:44:25 02/21/2014 23:59:59 [facility] Out[facility] Shilo Fatima [id number] 07/01/2013 12:49:32 07/01/2013 23:59:59 [facility] Outpatient Donna Guillen [id number] 04/15/2013 16:20:20 04/15/2013 23:59:59 [facility] Outpatient Shilo Fatima [id number] 03/18/2013 16:23:43 03/18/2013 23:59:59 [facility] Out[facility] Shilo Fatima [id number] 10/27/2016 12:01:59 Document Registration [id number] 09/19/2017 10:00:00 09/19/2017 23:59:59 [facility] Outpatient TERENCE VERDE LAC [facility] [id number] 11/02/2015 17:06:00 Document Registration
--- OUTSIDE RECORDS SUMMARY | 2018-02-03 20:50 | XMS REPORT ---
Author Author MARY RODRIGUES Organization [facility] Address [address] [place] [address] Care Team Providers Care Skill Labor Name Role Phone MARY RODRIGUES Unavailable PROBLEMS Type Condition ICD9-CM Code [id number] Code Onset Dates Condition Status SNOMED Code Problem Mood disorder F39 Active 06842702 Problem Anxiety F41.9 Active 38350855 Problem Seasonal allergic rhinitis due to other allergic trigger J30.89 Active 406970242 ALLERGIES No Known Allergies ENCOUNTERS Encounter Location Date Diagnosis [address] [id number] Oct, Mood disorder F39 and Hot flashes R23.[address] [id number] Oct, Anxiety F41.[address] [id number] Aug, Frequent headaches R51 ; Acute non-recurrent maxillary sinusitis J01.00 and Seasonal allergic rhinitis due to other allergic trigger J30.89 IMMUNIZATIONS No Known Immunizations SOCIAL HISTORY Never Assessed REASON FOR VISIT [facility] pt PLAN OF CARE VITAL SIGNS Height 63 in 2017-10-24 Weight 155 lbs 2017-10-24 Heart Rate 72 bpm 2017-10-24 Respiratory Rate 16 2017-10-24 BMI 27.45 kg/m2 2017-10-24 Blood pressure systolic 110 mmHg 2017-10-24 Blood pressure diastolic 64 mmHg 2017-10-24 MEDICATIONS Medication Instructions Dosage Frequency Start Date End Date Duration Status Cymbalta 60 MG Orally Once a day 1 capsule 24h Oct, 30 day(s) Active Cymbalta 30 MG Orally Once a day 1 capsule 24h Oct, 30 day(s) Active HydrOXYzine HCl 25 MG Orally every 8 hrs 1 tablet as needed 8h Oct, 30 day(s) Active RESULTS No Results PROCEDURES No Known procedures INSTRUCTIONS MEDICATIONS ADMINISTERED No Known Medications
--- OUTSIDE RECORDS SUMMARY | 2018-02-03 20:50 | XMS REPORT ---
Author Author MARY RODRIGUES Organization [facility] Address [address] [place] [address] Care Team Providers Care Physiatrist Name Role Phone MARY RODRIGUES Unavailable PROBLEMS Type Condition ICD9-CM Code [id number] Code Onset Dates Condition Status SNOMED Code Problem Anxiety F41.9 Active 75870003 Problem Seasonal allergic rhinitis due to other allergic trigger J30.89 Active 465598189 ALLERGIES No Known Allergies ENCOUNTERS Encounter Location Date Diagnosis [address] [place], [place] [id number] Oct, Anxiety F41.9 [address] [place], [place] [id number] Aug, Frequent headaches R51 ; Acute non-recurrent maxillary sinusitis J01.00 and Seasonal allergic rhinitis due to other allergic trigger J30.89 IMMUNIZATIONS No Known Immunizations SOCIAL HISTORY Never Assessed REASON FOR VISIT ALF PLAN OF CARE VITAL SIGNS Height 63 in 2017-09-19 Weight 157 lbs 2017-09-19 Heart Rate 72 bpm 2017-09-19 Respiratory Rate 16 2017-09-19 BMI 27.81 kg/m2 2017-09-19 Blood pressure systolic 110 mmHg 2017-09-19 Blood pressure diastolic 64 mmHg 2017-09-19 MEDICATIONS Medication Instructions Dosage Frequency Start Date End Date Duration Status Ibuprofen 200 MG Orally Three times a day 1 tablet with food or milk as needed 8h Aug, Active Loratadine 10 MG Orally Once a day 1 tablet 24h Aug, Sep, 30 day(s) Active RESULTS No Results PROCEDURES No Known procedures INSTRUCTIONS MEDICATIONS ADMINISTERED No Known Medications
--- OUTSIDE RECORDS SUMMARY | 2018-02-03 20:50 | XMS REPORT ---
Author Author MARY RODRIGUES Organization [facility] Address [address] [place] [address] Care Team Providers Care Multiplex Operator Name Role Phone MARY RODRIGUES Unavailable PROBLEMS Type Condition ICD9-CM Code QKY72-GS Code Onset Dates Condition Status SNOMED Code Problem Mood disorder F39 Active 19989616 Problem Anxiety F41.9 Active 30632138 Problem Seasonal allergic rhinitis due to other allergic trigger J30.89 Active 095191990 ALLERGIES No Known Allergies ENCOUNTERS Encounter Location Date Diagnosis [address] [id number] Oct, Mood disorder F39 and Hot flashes R23.[address] [id number] Oct, Anxiety F41.[address] [id number] Aug, Frequent headaches R51 ; Acute non-recurrent maxillary sinusitis J01.00 and Seasonal allergic rhinitis due to other allergic trigger J30.89 IMMUNIZATIONS No Known Immunizations SOCIAL HISTORY Never Assessed REASON FOR VISIT group home PLAN OF CARE VITAL SIGNS Height 63 in 2017-11-14 Weight 151 lbs 2017-11-14 Heart Rate 68 bpm 2017-11-14 Respiratory Rate 16 2017-11-14 BMI 26.75 kg/m2 2017-11-14 Blood pressure systolic 120 mmHg 2017-11-14 Blood pressure diastolic 76 mmHg 2017-11-14 MEDICATIONS Medication Instructions Dosage Frequency Start Date End Date Duration Status Fluoxetine HCl 20 MG Orally Once a day 1 tablet in the morning 24h Oct, 30 day(s) Active RESULTS No Results PROCEDURES No Known procedures INSTRUCTIONS MEDICATIONS ADMINISTERED No Known Medications
--- OUTSIDE RECORDS SUMMARY | 2018-02-03 20:50 | XMS REPORT ---
Author Author Lorenzo Mcclure [facility] Address [address] [place], [place] [id number] Care Team Providers Care Dairy Farmer Name Role Phone Lorenzo Mcclure PCP Unavailable [...] a day (at bedtime) for 30 days [place] 10-325 mg oral tablet 10/30/2015 take 1 [...] 08/09/2012 12:00 AM Decadron, Per 1 Mg [facility]# [id number] Reviewed 08/09/2012 12:00 AM Depo-Medrol, Per 80 Mg [facility]#[id number] Reviewed 09/26/2012 12:00 AM X-RAY EXAM KNEE 4 OR MORE Returned 10/10/2012 12:00 AM Physical Therapy Consult Reviewed 12/18/2012 12:00 AM ASSAY THYROID STIM HORMONE Returned 12/18/2012 12:00 AM VITAMIN B-12 Returned 12/18/2012 12:00 AM COMPLETE CBC W/AUTO DIFF WBC Returned 12/18/2012 12:00 AM IMMUNIZATION ADMIN Reviewed 12/18/2012 12:00 AM Flu Injection 3 Years And Above [facility]# [id number] RHC Reviewed 04/15/2013 12:00 AM ASSAY OF [...] CVX Influenza 12/18/2012 sanofi pasteur PMC Fluzone [id number] Intramuscular Left Deltoid 12/18/2012 09/14/2012 111 History [...] 2015 10:39AM Hypercalcemia Oct 30 2015 10:39AM Payers Insurance Name Company Name Plan Name Plan Number Policy Number Policy Group Number Start Date [id number] N/A [employer] [id number] N/A [facility] Med Occupational Medicine [id number] N/A History of Encounters Visit Date Visit Type Provider 10/30/2015 Office visit 10/30/2015 Office visit Lorenzo Mcclure MD 09/23/2015 Office visit Shilo Fatima APRN 08/05/2015 Office visit Shilo Fatima APRN 06/23/2015 Office visit Shilo Fatima APRN 05/14/2015 Office visit Lorenzo Mcclure MD 12/03/2014 Office visit Donna Guillen PUBLIC SERVICE REPRESENTATIVE 04/08/2014 Office visit Shilo Kushal PUBLIC SERVICE REPRESENTATIVE 02/21/2014 Office visit Shilo Kushal PUBLIC SERVICE REPRESENTATIVE 07/01/2013 Office visit Donna Guillen PUBLIC SERVICE REPRESENTATIVE 04/15/2013 Office visit Shilo Fatima PUBLIC SERVICE REPRESENTATIVE 03/18/2013 Office visit Shilo Fatima PUBLIC SERVICE REPRESENTATIVE 12/18/2012 Office visit Donna Guillen PUBLIC SERVICE REPRESENTATIVE 11/19/2012 Office visit Donna Guillen PUBLIC SERVICE REPRESENTATIVE 11/05/2012 Office visit Donna Guillen PUBLIC SERVICE REPRESENTATIVE 10/10/2012 Office visit Donna Guillen PUBLIC SERVICE REPRESENTATIVE 09/26/2012 Office visit Donna Guillen PUBLIC SERVICE REPRESENTATIVE 08/09/2012 Office visit WILBER GONZALEZ 02/02/2009 Hospital Rakesh Alberto MD 01/28/2009 Laboratory Meredith Marmolejo MD 01/27/2009 Office visit Rakesh Alberto MD 11/06/2008 Office visit Rakesh Alberto MD 10/16/2008 Office visit WILBER GONZALEZ
--- NOTE | 2018-02-03 20:56 | ED Upper Extremity ---
General Chief Complaint: Upper Extremity Stated Complaint: FELL INJURED RT ARM Source: patient History of Present Illness Date Seen by Provider: Feb 03, 2018 Time Seen by Provider: 20:44 Initial Comments PT ARRIVES VIA POV FROM [facility] STATES SHE SLIPPED IN THE SHOWER, LANDING ON HER RIGHT ARM OCCURRED AROUND 1900 TONIGHT C/O PAIN TO RIGHT UPPER ARM, RIGHT ELBOW AND RIGHT FOREARM HAS ABRASION TO RIGHT ELBOW NO PARESTHESIAS OR MOTOR DEFICITS NO PRIOR INJURY TO THIS ARM PT IS RIGHT HANDED PT DID BUMP HER HEAD, BUT NOT HARD AND NO LOSS OF CONSCIOUSNESS AND HEAD DOES NOT HURT DENIES ANY OTHER INJURIES OR AREAS OF PAIN NO NECK OR BACK PAIN LMP 2 MONTHS AGO, S/P BTL PCP: UNKNOWN DR. LAUREEN BENITEZ Allergies and Home Medications Allergies Coded Allergies: No Known Drug Allergies (Unverified , 02/03/18) Patient Home Medication List Home Medication List Reviewed: Yes Review of Systems Constitutional: no symptoms reported EENTM: no symptoms reported Respiratory: no symptoms reported; No short of breath Cardiovascular: no symptoms reported; No chest pain Gastrointestinal: no symptoms reported; No abdominal pain Genitourinary: no symptoms reported LMP: Dec 04, 2017 Control/STD Prophylaxis: Other (BTL) Musculoskeletal: see HPI Skin: see HPI Psychiatric/Neurological: No Symptoms Reported Past Qqdynts-Diegsx-Ljmoie Hx Patient Social History Recent Foreign Travel: No Contact w/Someone Who Travel: No Past Medical History Surgeries: Yes (BACK SURGERY) Orthopedic, Tubal Ligation Respiratory: No Cardiac: No Neurological: No 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 oz. kg; BMI Method: General Appearance: WD/WN, no apparent distress, other (PT ARRIVES IN SHACKLES TO FEET AND HANDS) Neck: non-tender, full range of motion, supple Cardiovascular: normal peripheral pulses, regular rate, rhythm, no murmur Respiratory: chest non-tender, normal breath sounds, no respiratory distress, no accessory muscle use Gastrointestinal: normal bowel sounds, non tender, soft Back: normal inspection, no CVA tenderness, no vertebral tenderness Shoulder: normal ROM, bone tenderness, pain, soft tissue tenderness Elbow/Forearm: Right, abrasions, bone tenderness, pain, soft tissue tenderness Wrist: Yes bone tenderness, Yes pain, Yes soft tissue tenderness Hand: normal inspection, non-tender, no evidence of injury, normal ROM Neurologic/Tendon: normal sensation, normal motor functions, normal tendon functions 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 ) Progress/Results/Core Measures Results/Orders My Orders Orders - YADIRACOMFORTA K DO Forearm, Right, 2 Views (02/03/18 20:49) Humerus, Right, 2 Views (02/03/18 20:49) Elbow, Right, 3 Views (02/03/18 20:49) Dipht,Pertuss(Acell),Tet Adult (Boostrix (02/03/18 20:49) Wound Dressing-Ed (02/03/18 21:51) Vital Signs/I&O 02/03/18 02/03/18 20:49 21:59 Temp 98.2 98.2 Pulse 90 90 Resp 16 16 B/P (MAP) 143/94 (110) 143/94 (110) Pulse Ox 100 100 Diagnostic Imaging Comments XRAYS RIGHT HUMERUS, RIGHT ELBOW, RIGHT FOREARM--ALL NEGATIVE PER RADIOLOGIST REPORTS @ 2146 Reviewed: Reviewed by Me Departure Impression Primary Impression: Status post fall Additional Impressions: Contusion of right upper arm Contusion of right elbow and forearm Abrasion of right elbow Mpjnwknzss-swiesqasv-krqmljo (DPT) vaccination administered at current visit Disposition: HOME, SELF-CARE Condition: Stable Departure-Patient Inst. Referrals: NO,LOCAL PHYSICIAN (PCP) Primary Care Physician Patient Instructions: Contusion (DC), Diphtheria and Tetanus Toxoids, and Acellular Pertussis Vaccine, Skin Abrasions (DC), Wound Care (DC) Add. Discharge Instructions: TYLENOL AND MOTRIN NEEDED FOR PAIN CLEAN WOUND TWICE A DAY WITH ANTIBACTERIAL SOAP AND WATER, APPLY ANTIBIOTIC OINTMENT AND FRESH DRESSING TWICE DAY FOLLOW UP WITH YOUR DR IN 1 WEEK IF NO BETTER All discharge instructions reviewed with patient and/or family. Voiced understanding. MICHOACANO MAY DO Feb 03, 2018 20:56
--- NOTE | 2018-02-03 21:37 | Diagnostic Imaging Report ---
INDICATION: Right arm injury COMPARISON: None FINDINGS: 3 views of the right elbow demonstrate no fracture or dislocation. There is some osteophytosis involving the lateral epicondyle. There is no joint effusion or foreign body. IMPRESSION: No fracture or dislocation Dictated by: Dictated on workstation # [id number]
--- NOTE | 2018-02-03 21:40 | Diagnostic Imaging Report ---
INDICATION: Right arm pain, trauma FINDINGS: Two views of the right forearm demonstrate no fracture or dislocation. Articular surfaces are normal. No foreign body. IMPRESSION: Negative right forearm Dictated by: Dictated on workstation # [id number]
--- NOTE | 2018-02-03 21:42 | Diagnostic Imaging Report ---
INDICATION: Fall, right arm pain COMPARISON: None FINDINGS: Two views of the right humerus demonstrate no fracture or dislocation. Articular surfaces are normal. No osseous lesion. IMPRESSION: Negative right humerus Dictated by: Dictated on workstation # [id number]
[2018-02-03 21:59] VITALS: BP 143/94
== END 2018-02-03 22:01 | disposition home or self-care (01) ==
LOC: EDUNIT# 20:38 → ER 20:40
DX: S40.021A Contusion of right upper arm, initial encounter (principal); S50.01XA Contusion of right elbow, initial encounter; S50.11XA Contusion of right forearm, initial encounter; F41.9 Anxiety disorder, unspecified; F32.9 Major depressive disorder, single episode, unspecified; Z98.51 Tubal ligation status; Z23 Encounter for immunization; W01.0XXA Fall on same level from slipping, tripping and stumbling without subsequent striking against object, initial encounter; Y92.002 Bathroom of unspecified non-institutional (private) residence as the place of occurrence of the external cause
CPT/HCPCS: 73060; 73080; 73090; 90715

== ENCOUNTER 2021-02-04 09:33 | Emergency (ER) | payer SELFPAY ==
[~2021-02-04] VITALS: Ht 162 cm; Wt 68.0 kg
[2021-02-04 09:58] LABS: BASOPHILS % (AUTO) 1 % (0-10); EOSINOPHILS # (AUTO) 0.1 10^3/uL (0.0-0.3); EOSINOPHILS % (AUTO) 2 % (0-10); HEMATOCRIT 41 % (35-52); HEMOGLOBIN 13.6 g/dL (11.5-16.0); LYMPHOCYTES # (AUTO) 1.3 10^3/uL (1.0-4.0); LYMPHOCYTES % (AUTO) 17 % (12-44); MEAN CORPUSCULAR HEMOGLOBIN 32 pg (25-34); MEAN CORPUSCULAR HGB CONC 33 g/dL (32-36); MEAN CORPUSCULAR VOLUME 96 fL (80-99); MEAN PLATELET VOLUME 9.6 fL (9.0-12.2); MONOCYTES # (AUTO) 0.5 10^3/uL (0.0-1.0); MONOCYTES % (AUTO) 7 % (0-12); NEUTROPHILS # (AUTO) 5.4 10^3/uL (1.8-7.8); NEUTROPHILS % (AUTO) 73 % (42-75); PLATELET COUNT 259 10^3/uL (130-400); WHITE BLOOD COUNT 7.3 10^3/uL (4.3-11.0)
[2021-02-04] MEDS ORDERED: LACTATED RINGERS 1,000 ML IV ONE (10:00)
[2021-02-04 10:02] LABS: ALBUMIN 4.2 GM/DL (3.2-4.5); CHLORIDE 105 MMOL/L (98-107); POTASSIUM 4.4 MMOL/L (3.6-5.0); SODIUM 136 MMOL/L (135-145)
[2021-02-04 10:04] LABS: CALCIUM 10.9 MG/DL (8.5-10.1)
[2021-02-04 10:05] LABS: GLUCOSE 108 MG/DL (70-105); TOTAL PROTEIN 7.3 GM/DL (6.4-8.2)
[2021-02-04 10:06] LABS: CARBON DIOXIDE 23 MMOL/L (21-32)
[2021-02-04 10:07] LABS: BILIRUBIN,TOTAL 0.3 MG/DL (0.1-1.0)
[2021-02-04 10:09] LABS: ALKALINE PHOSPHATASE 52 U/L (40-136); GFR ESTIMATED 66
[2021-02-04 10:10] LABS: BUN/CREATININE RATIO 22
[2021-02-04 10:11] LABS: SALICYLATE < 5.0 MG/DL (5.0-20.0)
[2021-02-04 10:12] LABS: ALANINE AMINOTRANSFERASE 21 U/L (0-55)
--- NOTE | 2021-02-04 10:14 | Diagnostic Imaging Report ---
PROCEDURE: CT head wo r/o stroke. TECHNIQUE: Multiple contiguous axial images were obtained through the brain without the use of intravenous contrast. Auto Exposure Controls were utilized during the CT exam to meet ALARA standards for radiation dose reduction. INDICATION: Possible stroke. Patient drowsy with speech difficulty. COMPARISON: No prior studies are available for comparison. FINDINGS: The ventricles and sulci are within normal limits. No sulcal effacement or midline shift is identified. No acute intra-axial or extra-axial hemorrhage is detected. Cisterns are patent. Visualized paranasal sinuses are clear. IMPRESSION: No acute intracranial process is detected. Dictated by: Dictated on workstation # [id number]
--- NOTE | 2021-02-04 10:20 | Diagnostic Imaging Report ---
EXAMINATION: Chest 1 view HISTORY: Stroke activation COMPARISON: None available. FINDINGS: Heart size and pulmonary vasculature are normal. The lungs are clear without consolidation, pleural effusion, or pneumothorax. Degenerative changes of the thoracic spine. Osseous structures are otherwise intact. IMPRESSION: 1. No acute radiographic abnormality in the chest. Dictated by: Dictated on workstation # [id number]
[2021-02-04 10:27] LABS: ACETAMINOPHEN < 10 UG/ML (10-30)
[2021-02-04 11:02] LABS: BILIRUBIN,URINE NEGATIVE (NEGATIVE); CLARITY,URINE CLEAR; COLOR,URINE YELLOW; GLUCOSE, URINE (UA) NEGATIVE (NEGATIVE); KETONES,URINE NEGATIVE (NEGATIVE); LEUKOCYTE ESTERASE ,URINE NEGATIVE (NEGATIVE); NITRITE,URINE NEGATIVE (NEGATIVE); PROTEIN,URINE NEGATIVE (NEGATIVE)
[2021-02-04 11:16] LABS: AMPHETAMINE SCREEN, URINE NEGATIVE (NEGATIVE); BACTERIA,URINE NEGATIVE /HPF; BARBITURATE SCREEN URINE NEGATIVE (NEGATIVE); BENZODIAZEPINES SCREEN URINE POSITIVE (NEGATIVE); CANNABINOID SCREEN, URINE NEGATIVE (NEGATIVE); COCAINE SCREEN URINE NEGATIVE (NEGATIVE); METHADONE STAT NEGATIVE (NEGATIVE); METHAMPHETAMINE SCREEN URINE S NEGATIVE (NEGATIVE); OPIATE SCREEN URINE NEGATIVE (NEGATIVE); OXYCODONE STAT NEGATIVE (NEGATIVE); PROPOXYPHENE STAT NEGATIVE (NEGATIVE); TRICYCLIC ANTIDEPRESSANTS SCRE NEGATIVE (NEGATIVE); WBC,URINE RARE /HPF
[2021-02-04 11:17] LABS: SQUAMOUS EPITHELIAL CELL,UR 0-2 /HPF
[2021-02-04 11:27] LABS: ABG BASE EXCESS -0.6 MMOL/L (-2.5-2.5); ABG OXYGEN SATURATION 94 % (94-100); ABG PCO2 44 MMHG (35-45); ABG PH 7.36 (7.37-7.43); ABG PO2 72 MMHG (79-93); ABG TCO2 25.8 MMOL/L (21.0-31.0)
[2021-02-04 11:28] LABS: ALLENS TEST YES-POS; INSPIRED O2 ROOM AIR; PATIENT TEMP 36; VENTILATOR NO
[2021-02-04 11:34] LABS: PARTIAL THROMBOPLASTIN TIME 25 SEC (24-35); PROTHROMBIN TIME PATIENT 13.2 SEC (12.2-14.7)
[2021-02-04 11:35] LABS: FIBRIN DEGRADATION PRODUCTS < 0.27 UG/ML (0.00-0.49)
--- NOTE | 2021-02-04 16:05 | ED Psychosocial ---
General Chief Complaint: Neuro-Stroke Like Symptoms Stated Complaint: STROKE Nursing Triage Note: PT ARRIVED PER EMS W POSSIBLE STROKE LIKE SX. PT WAS SLUMPED OVER AT WORK AND CO WORKERS COULD NOT WAKE HER UP. PT DROWSY, SPEECH SLOW TO ANSWER. PT ABLE TO MOVE ALL EXT. EMS STATES PT UNSTEADY WHEN TRIED TO STAND UP. LAST KNOWN WELL TIME 0830. PT STATES TAKES MEDS FOR ANXIETY AND DID TAKE MEDS THIS AM Source: patient Exam Limitations: no limitations History of Present Illness Date Seen by Provider: Feb 04, 2021 Time Seen by Provider: 09:35 Initial Comments This 50-year-old woman presents to the emergency room via EMS with altered mental status and concerns for possible stroke. She presented to her place of employment where she sat down at a desk this morning. She appeared to have fallen asleep and when coworkers checked on her they were not getting an appropriate response. On arrival she is responsive but very somnolent with sluggish speech. She does not appear to have a particular focal deficit however. Last time she was known to be normal was zero 830. She reports taking medications this morning including her anxiety medication. She denies any recent drug or alcohol use. Fingerstick blood sugar by EMS was 133. Patient gets her medications from [facility]. She has them provided through samples. Her medications include Prozac 40 mg daily, trazodone 200 mg at bedtime, and BuSpar 5 mg twice daily for a week and then 10 mg twice daily. Patient's eventually arrived. He is not aware of her misusing any medications. He states her speech is slow and build compared to baseline. Allergies and Home Medications Allergies Coded Allergies: No Known Drug Allergies (Unverified , 02/03/18) Patient Home Medication List Home Medication List Reviewed: Yes Review of Systems Constitutional: see HPI EENTM: no symptoms reported Respiratory: no symptoms reported Cardiovascular: no symptoms reported Gastrointestinal: no symptoms reported Genitourinary: no symptoms reported : No Musculoskeletal: no symptoms reported Skin: no symptoms reported Psychiatric/Neurological: See HPI Past Hsykatu-Mfsbks-Zoeqya Hx Patient Social History Tobacco Use?: No Substance use?: No Alcohol Use?: Yes Alcohol Frequency: Once in a while Pt feels they are or have been: No Past Medical History Surgeries: Yes (BACK SURGERY) Orthopedic, Tubal Ligation Respiratory: No Cardiac: No Neurological: No 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 oz. 77.057360cj; 25.00 BMI Method:Estimated General Appearance: WD/WN, no apparent distress, other (Somnolent) HEENT: PERRL/EOMI, normal ENT inspection, pharynx normal Neck: normal inspection Respiratory: lungs clear, normal breath sounds, no respiratory distress, no accessory muscle use Cardiovascular: regular rate, rhythm, no edema, no gallop, no murmur Gastrointestinal: non tender, soft Extremities: normal inspection, no pedal edema Neurologic/Psychiatric: no motor/sensory deficits, alert, oriented x 3, other (Mentation and speech sluggish. She is able to respond appropriately to some questions. There appear to be no focal deficits on exam.) Appearance/Memory: appropriate appearance Behavior/Eye Contact: cooperative, decreased rate of speech Skin: normal color, warm/dry Progress/Results/Core Measures Results/Orders Lab Results Laboratory Tests Test 02/04/21 09:39 02/04/21 10:57 02/04/21 11:02 02/04/21 11:18 Range/Units White Blood Count 7.3 4.3-11.0 10^3/uL Red Blood Count 4.24 3.80-5.11 10^6/uL Hemoglobin 13.6 11.5-16.0 g/dL Hematocrit 41 35-52 % Mean Corpuscular Volume 96 80-99 fL Mean Corpuscular Hemoglobin 32 25-34 pg Mean Corpuscular Hemoglobin Concent 33 32-36 g/dL Red Cell Distribution Width 12.2 10.0-14.5 % Platelet Count 259 130-400 10^3/uL Mean Platelet Volume 9.6 9.0-12.2 fL Immature Granulocyte % (Auto) 0 % Neutrophils (%) (Auto) 73 42-75 % Lymphocytes (%) (Auto) 17 12-44 % Monocytes (%) (Auto) 7 0-12 % Eosinophils (%) (Auto) 2 0-10 % Basophils (%) (Auto) 1 0-10 % Neutrophils # (Auto) 5.4 1.8-7.8 10^3/uL Lymphocytes # (Auto) 1.3 1.0-4.0 10^3/uL Monocytes # (Auto) 0.5 0.0-1.0 10^3/uL Eosinophils # (Auto) 0.1 0.0-0.3 10^3/uL Basophils # (Auto) 0.0 0.0-0.1 10^3/uL Immature Granulocyte # (Auto) 0.0 0.0-0.1 10^3/uL Sodium Level 136 135-145 MMOL/L Potassium Level 4.4 3.6-5.0 MMOL/L Chloride Level 105 98-107 MMOL/L Carbon Dioxide Level 23 21-32 MMOL/L Anion Gap 8 5-14 MMOL/L Blood Urea Nitrogen 20 H 7-18 MG/DL Creatinine 0.90 0.60-1.30 MG/DL Estimat Glomerular Filtration Rate 66 BUN/Creatinine Ratio 22 Glucose Level 108 H 70-105 MG/DL Calcium Level 10.9 H 8.5-10.1 MG/DL Corrected Calcium 10.7 H 8.5-10.1 MG/DL Total Bilirubin 0.3 0.1-1.0 MG/DL Aspartate Amino Transf (AST/SGOT) 21 5-34 U/L Alanine Aminotransferase (ALT/SGPT) 21 0-55 U/L Alkaline Phosphatase 52 40-136 U/L Troponin I < 0.028 <0.028 NG/ML Total Protein 7.3 6.4-8.2 GM/DL Albumin 4.2 3.2-4.5 GM/DL Salicylates Level < 5.0 L 5.0-20.0 MG/DL Acetaminophen Level < 10 L 10-30 UG/ML Serum Alcohol < 10 <10 MG/DL Urine Color YELLOW Urine Clarity CLEAR Urine pH 6.0 5-9 Urine Specific Kelliher 1.015 L 1.016-1.022 Urine Protein NEGATIVE NEGATIVE Urine Glucose (UA) NEGATIVE NEGATIVE Urine Ketones NEGATIVE NEGATIVE Urine Nitrite NEGATIVE NEGATIVE Urine Bilirubin NEGATIVE NEGATIVE Urine Urobilinogen 0.2 < = 1.0 MG/DL Urine Leukocyte Esterase NEGATIVE NEGATIVE Urine RBC (Auto) NEGATIVE NEGATIVE Urine RBC NONE /HPF Urine WBC RARE /HPF Urine Squamous Epithelial Cells 0-2 /HPF Urine Crystals NONE /LPF Urine Bacteria NEGATIVE /HPF Urine Casts NONE /LPF Urine Mucus NEGATIVE /LPF Urine Culture Indicated NO Urine Opiates Screen NEGATIVE NEGATIVE Urine Oxycodone Screen NEGATIVE NEGATIVE Urine Methadone Screen NEGATIVE NEGATIVE Urine Propoxyphene Screen NEGATIVE NEGATIVE Urine Barbiturates Screen NEGATIVE NEGATIVE Ur Tricyclic Antidepressants Screen NEGATIVE NEGATIVE Urine Phencyclidine Screen NEGATIVE NEGATIVE Urine Amphetamines Screen NEGATIVE NEGATIVE Urine Methamphetamines Screen NEGATIVE NEGATIVE Urine Benzodiazepines Screen POSITIVE H NEGATIVE Urine Cocaine Screen NEGATIVE NEGATIVE Urine Cannabinoids Screen NEGATIVE NEGATIVE Prothrombin Time 13.2 12.2-14.7 SEC INR Comment 1.0 0.8-1.4 Activated Partial Thromboplast Time 25 24-35 SEC D-Dimer < 0.27 0.00-0.49 UG/ML Blood Gas Puncture Site R RADIAL Blood Gas Patient Temperature 36 Arterial Blood pH 7.36 L 7.37-7.43 Arterial Blood Partial Pressure CO2 44 35-45 MMHG Arterial Blood Partial Pressure O2 72 L 79-93 MMHG Arterial Blood HCO3 24 23-27 MMOL/L Arterial Blood Total CO2 25.8 21.0-31.0 MMOL/L Arterial Blood Oxygen Saturation 94 94-100 % Arterial Blood Base Excess -0.6 -2.5-2.5 MMOL/L Mat Test YES-POS Blood Gas Ventilator Setting NO Blood Gas Inspired Oxygen ROOM AIR My Orders Orders - RAMONA RAMIREZ MD Cbc With Automated Diff (02/04/21 09:49) Protime With Inr (02/04/21 09:49) Partial Thromboplastin Time (02/04/21 09:49) Comprehensive Metabolic Panel (02/04/21 09:49) Fibrin Degradation Products (02/04/21 09:49) Troponin I Lei (02/04/21 09:49) Ua Culture If Indicated (02/04/21 09:49) Chest 1 View, Ap/Pa Only (02/04/21 09:49) Ekg Tracing (02/04/21 09:49) Nothing By Mouth (02/04/21 Lunch) Accucheck Stat ONCE (02/04/21 09:49) Ed Iv/Invasive Line Start (02/04/21 09:49) Ed Iv/Invasive Line Start (02/04/21 09:49) Vital Signs Stroke Patient Q15M (02/04/21 09:49) Ct Head Wo-R/O Stroke (02/04/21 09:49) O2 (02/04/21 09:49) Intake & Output 06,14,22 (02/04/21 09:49) Monitor-Rhythm Ecg Trace Only (02/04/21 09:49) Dysphagia Screening Tool (02/04/21 09:49) Acetaminophen (02/04/21 09:51) Alcohol (02/04/21 09:51) Drug Screen Stat (Urine) (02/04/21 09:51) Salicylate (02/04/21 09:51) Lactated Ringers (Lr 1000 Ml Iv Solution (02/04/21 10:00) Arterial Blood Gas (02/04/21 11:13) Arterial Blood Draw - Obtain (02/04/21 ) Medications Given in ED Current Medications Medications Dose Ordered Sig/Prachi Route Start Time Stop Time Status Last Admin Dose Admin Lactated Ringer's 1,000 ml @ 0 mls/hr Q0M ONCE IV 02/04/21 10:00 02/04/21 10:01 DC 02/04/21 10:12 1,000 MLS/HR Vital Signs/I&O 02/04/21 02/04/21 09:35 18:31 Temp 36.0 Pulse 69 62 Resp 20 20 B/P (MAP) 115/69 (84) 142/82 Pulse Ox 96 96 Blood Pressure Mean: 84 FSBG Bedside Testing Finger Stick Blood Glucose: 133 Blood Glucose Action Taken: TAKEN BY EMS Progress Progress Note : Time: 17:20 Progress Note Patient continues to have abnormal somnolence but has been gradually improving over the past several hours. She is able to get up and walk independently but is still a little shaky. She has tremors with [id number] as well. She is more responsive to voice and more readily answers questions. I do not believe she will need admission to the hospital, but she needs some more time in the ER before returning home. We have never been able to ascertain exactly what caused her symptoms. A benzodiazepine overdose is suspected as that is the only positive drug screen. Patient denies using any benzodiazepines. Her medications are not commonly known to cause a false positive for benzodiazepine on the drug screen. is not aware of her using any medications not prescribed to her. He denies hearing her express any self-harm ideation. Patient does not directly express any self-harm ideation either. Diagnostic Imaging Diagonstic Imaging: Xray Plain Films/CT/US/NM/MRI: chest Comments NAME: RE EVANS [facility] REC#: [id number] PT STATUS: REG ER : 1970 PHYSICIAN: RAMONA RAMIREZ MD ADMIT DATE: 02/04/21/ER Signed Date of Exam:02/04/21 CHEST 1 VIEW, AP/PA ONLY EXAMINATION: Chest 1 view HISTORY: Stroke activation COMPARISON: None available. FINDINGS: Heart size and pulmonary vasculature are normal. The lungs are clear without consolidation, pleural effusion, or pneumothorax. Degenerative changes of the thoracic spine. Osseous structures are otherwise intact. IMPRESSION: 1. No acute radiographic abnormality in the chest. Dictated by: Dictated on workstation # [id number] Dict: 02/04/21 1017 Trans: 02/04/21 1100 [id number] Interpreted by: DIEUDONNE OHARA DO Electronically signed by: DIEUDONNE OHARA DO 02/04/21 1100 Reviewed: Reviewed by Dc Diagonstic Imaging: CT Plain Films/CT/US/NM/MRI: head Comments NAME: RE EVANS [facility] REC#: [id number] PT STATUS: REG ER : 1970 PHYSICIAN: RAMONA RAMIREZ MD ADMIT DATE: 02/04/21/ER Signed Date of Exam:02/04/21 CT HEAD WO-R/O STROKE PROCEDURE: CT head wo r/o stroke. TECHNIQUE: Multiple contiguous axial images were obtained through the brain without the use of intravenous contrast. Auto Exposure Controls were utilized during the CT exam to meet ALARA standards for radiation dose reduction. INDICATION: Possible stroke. Patient drowsy with speech difficulty. COMPARISON: No prior studies are available for comparison. FINDINGS: The ventricles and sulci are within normal limits. No sulcal effacement or midline shift is identified. No acute intra-axial or extra-axial hemorrhage is detected. Cisterns are patent. Visualized paranasal sinuses are clear. IMPRESSION: No acute intracranial process is detected. Dictated by: Dictated on workstation # [id number] Dict: 02/04/21 1009 Trans: 02/04/21 1534 [facility] [id number] Interpreted by: FAN FLORES MD Electronically signed by: FAN FLORES MD 02/04/21 1534 Reviewed: Reviewed by Me Departure Impression Primary Impression: Altered mental status Qualified Codes: R41.82 - Altered mental status, unspecified Additional Impression: Benzodiazepine overdose Qualified Codes: T42.4X4A - Poisoning by benzodiazepines, undetermined, initial encounter Disposition: HOME, SELF-CARE Condition: Improved Departure-Patient Inst. Referrals: NO,LOCAL PHYSICIAN (PCP/Family) Primary Care Physician Patient Instructions: Substance Use Disorder ED Add. Discharge Instructions: Drink plenty of clear liquids to stay well-hydrated. Do not resume your other medications until your mental status is back to baseline. Do not drive or operate any machinery until you are back to baseline mental status. Follow-up with your primary care provider as soon as possible. Please call tomorrow for an appointment. Return to the emergency room if you have any worsening of condition. Call with any questions or concerns. All discharge instructions reviewed with patient and/or family. Voiced understanding. RAMONA RAMIREZ MD Feb 04, 2021 16:05
[2021-02-04 18:31] VITALS: BP 142/82
== END 2021-02-04 18:30 | disposition home or self-care (01) ==
LOC: EDUNIT# 09:33 → ER 09:35
DX: R41.82 Altered mental status, unspecified (principal); T42.4X1A Poisoning by benzodiazepines, accidental (unintentional), initial encounter
CPT/HCPCS: 36600; 51701; 70450; 71045; 80053; 80306; 81000; 82805; 84484; 85025; 85379; 85610; 85730; 93005; 93041; 99285; G0480 ×3; 36415; 80320; 80329

== ENCOUNTER 2021-05-19 10:55 | Emergency (ER) | payer SELFPAY ==
[~2021-05-19] VITALS: Ht 162 cm; Wt 68.0 kg
--- NOTE | 2021-05-19 11:04 | ED Upper Extremity ---
General Chief Complaint: Laceration Stated Complaint: R HAND LAC Source: patient Exam Limitations: no limitations (REGGIE POSADAS APRN) History of Present Illness Date Seen by Provider: May 19, 2021 Time Seen by Provider: 11:03 Initial Comments crush injury to right pinky finger from a press of some sort at work just prior to arrival. Tetanus status unknown. Onset: just prior to arrival Severity: moderate Pain/Injury Location: right 5th finger Method of Injury: direct blow Modifying Factors: Worse With Movement (REGGIE POSADAS APRN) Allergies and Home Medications Allergies Coded Allergies: No Known Drug Allergies (Unverified , 02/03/18) Patient Home Medication List Home Medication List Reviewed: Yes (REGGIE POSADAS APRN) Cephalexin (Cephalexin) 500 Mg Tablet, 500 MG PO QID Prescribed by: REGGIE POSADAS on 05/19/21 1142 Hydrocodone/Acetaminophen (Hydrocodone-Acetamin 5-325 mg) 1 Each Tablet, 1 TAB PO Q4H PRN for PAIN-MODERATE (5-7) Prescribed by: REGGIE POSADAS on 05/19/21 1142 Review of Systems Constitutional: see HPI EENTM: see HPI Respiratory: no symptoms reported Cardiovascular: no symptoms reported Genitourinary: no symptoms reported Musculoskeletal: no symptoms reported Skin: no symptoms reported Psychiatric/Neurological: No Symptoms Reported (REGGIE POSADAS APRN) Past Ewuapjd-Scqavi-Dkitvl Hx Past Medical History Surgeries: Yes (BACK SURGERY) Orthopedic, Tubal Ligation Respiratory: No Cardiac: No Neurological: No 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 oz. 77.542080mz; 25.00 BMI Method:Estimated General Appearance: WD/WN, no apparent distress HEENT: PERRL/EOMI, normal ENT inspection Neck: non-tender, full range of motion Respiratory: no respiratory distress, no accessory muscle use Gastrointestinal: normal bowel sounds, non tender, soft Shoulder: normal inspection Elbow/Forearm: normal inspection, non-tender Wrist: Yes normal inspection, Yes non-tender Hand: Right, laceration (thru palmar aspect of right 5th digit middle phalanx thre is 1cm laceration) Neurologic/Psychiatric: alert, normal mood/affect, oriented x 3 Skin: normal color, warm/dry (REGGIE POSADAS APRN) Departure Communication (Admissions) based on her inability to flex her 5th finger at pip/dip joint I would have concerns about a flexor tendon injury. However, after local anesthesia with 1ml 1% lidocaine without epi I was able to expolre the wound. No foreign body or bone fragment seen. Flexor tendon is visualized and APPEARS intact. Will need to reevaluate her flexion abilities during suture removal in 10 days. Limited flexion ability could be due to pain. If still not able to flex, will need refe rral to hand surgery. Anyway, after anesthesia I irrigated the wound with chlorhexidine/saline solution. No foreign body or bone fragment identified. Closed with 5 simple interrupted sutures size 5-0 prolene on palmar side and 1 simple inerrupted same size dorsal. (REGGIE POSADAS APRN) Impression Primary Impression: Finger laceration Disposition: 01 HOME, SELF-CARE Condition: Stable Departure-Patient Inst. Decision time for Depature: 11:40 (REGGIE POSADAS APRN) Referrals: NO,LOCAL PHYSICIAN (PCP/Family) Primary Care Physician Patient Instructions: Laceration Repair With Stitches ED Add. Discharge Instructions: 1. Return to ER for any concerns 2. Change dressing as needed, this will bleed/ooze for a few days. 3. Antibiotics and pain meds as directed. Return to Er for any redness or concern of infection. Otherwise, return to ER in 10-12 days to have stitches removed. Yoou can shower letting water run over this starting tomorrow, dont soak this in water until stitches are out. All discharge instructions reviewed with patient and/or family. Voiced understanding. Scripts Cephalexin (Cephalexin) 500 Mg Tablet 500 MG PO QID, #20 TAB Prov: REGGIE POSADAS APRN 05/19/21 Hydrocodone/Acetaminophen (Hydrocodone-Acetamin 5-325 mg) 1 Each Tablet 1 TAB PO Q4H PRN for PAIN-MODERATE (5-7), #14 TAB Prov: REGGIE POSADAS CORE DRIER 05/19/21 ATTENDING PHYSICIAN NOTE: I was physically present as attending physician in the emergency department during the care of this patient, but I was not directly involved in the decision making or delivery of care for this patient. (RAMONA RAMIREZ MD) REGGIE POSADAS APRN May 19, 2021 11:04 RAMONA RAMIREZ MD May 21, 2021 06:11
[2021-05-19] MEDS ORDERED: TETANUS,DIPTH,PERTUSS P/F (BOOSTRIX) 0.5 ML VIAL IM ONE (11:15)
--- NOTE | 2021-05-19 11:24 | Diagnostic Imaging Report ---
Indication: Laceration to the 5th finger. Time of Exam: 11:03 AM 3 views of the right hand were obtained. There is a fracture at the base of the middle phalanx of the 5th finger, nondisplaced. The proximal and distal phalanges appear to be intact. Metacarpals are intact. Curvilinear density is noted in the soft tissues on the volar side at the level of the mid shaft of the middle phalanx 5th finger, indeterminate. Could represent a small fracture fragment versus foreign body. Impression: 1. Fracture involving the middle phalanx of the 5th finger, nondisplaced. 2. Indeterminate curvilinear density noted in the volar soft tissues, as described above. Dictated by: Dictated on workstation # [id number]
[2021-05-19] MEDS ORDERED: CEPH500T PO (11:42)
[2021-05-19] MEDS ORDERED: ACHD5005 PO (11:42)
[2021-05-19 12:12] VITALS: BP 155/86
== END 2021-05-19 12:12 | disposition home or self-care (01) ==
LOC: EDUNIT# 10:56 → ER 10:57
DX: S61.216A Laceration without foreign body of right little finger without damage to nail, initial encounter (principal); Z23 Encounter for immunization; W23.1XXA Caught, crushed, jammed, or pinched between stationary objects, initial encounter
CPT/HCPCS: 12041; 73130; 90715